=== PATIENT | male | born 1960 | race Caucasian/White ===

== ENCOUNTER 2020-12-11 09:49 | Emergency (ER) | payer OTHER ==
[~2020-12-11] VITALS: Ht 175.3 cm; Wt 99.0 kg
[2020-12-11 11:23] LABS: BASOPHILS % (AUTO) 1 % (0-1); EOSINOPHILS % (AUTO) 2 % (1-7); LYMPHOCYTES % (AUTO) 7 % (22-44); MEAN CORPUSCULAR HGB CONC 34.9 g/dL (33.2-36.2); MEAN PLATELET VOLUME 7.6 fL (7.4-10.4); MONOCYTES % (AUTO) 4 % (2-9); NEUTROPHILS % (AUTO) 87 % (42-75); PLATELET COUNT 264 x10^3/uL (130-400); RED BLOOD COUNT 5.27 x10^6/uL (4.38-5.82); RED CELL DISTRIBUTION WIDTH 13.5 % (9.4-14.8)
[2020-12-11 11:33] LABS: ALBUMIN 4.1 g/dL (3.4-5.0); ANION GAP 6 mmol/L (5-15); CHLORIDE 106 mmol/L (98-107)
[2020-12-11 11:41] LABS: HCT (SEDRATE) 48.4 % (39.2-51.8)
--- NOTE | 2020-12-11 12:19 | NUR ---
sent mri safety screening to mri, 20g IV started in left ac
--- NOTE | 2020-12-11 13:35 | NUR ---
REPORT FROM MAIRA LANGE FOR TRANSFER OF PATIENT CARE.
--- NOTE | 2020-12-11 14:05 | NUR ---
PATIENT RESTING IN GURNEY, WATCHING TV, NADN, CONNECTED TO MONITOR, VSS, CALL LIGHT WITHIN REACH, NO FURTHER NEEDS AT THIS TIME. WAITING FOR MRI.
--- NOTE | 2020-12-11 14:17 | NUR ---
ERMD AT BEDSIDE TO DISCUSS POC.
[2020-12-11] MEDS ORDERED: LORazepam 1MG TABLET ONE (14:25)
[2020-12-11] MEDS ORDERED: LIDOCAINE 1%, 10ML INFIL ONE (14:30)
[2020-12-11] MEDS ORDERED: LORazepam 1MG TABLET PO ONE (14:30)
[2020-12-11] MEDS ORDERED: LIDOCAINE-MPF 2% ,5ML ONE ×2 (14:37→16:44)
--- NOTE | 2020-12-11 15:12 | NUR ---
ERPA AT BEDSIDE FOR LUMBAR PUNCTURE.
[2020-12-11 15:54] LABS: GLUCOSE, CSF 89 mg/dL (40-80); TOTAL PROTEIN,CSF 54 mg/dL (15-45)
[2020-12-11] MEDS ORDERED: SODIUM CHLORIDE 0.9% 1,000ML IVBOLUS ONE (16:30)
--- NOTE | 2020-12-11 16:52 | NUR ---
LUMBAR PUNCTURE SET UP FOR SECOND ATTEMPT. ER PROVIDER NOTIFIED.
--- NOTE | 2020-12-11 17:24 | NUR ---
ERPA AT BEDSIDE FOR LUMBAR PUNCTURE.
--- NOTE | 2020-12-11 18:01 | NUR ---
SECOND LUMBAR PUNCTURE COMPLETED, PATIENT LAYING FLAT IN GURNEY, DENIES PAIN, CONNECTED TO MONITOR, VSS, CALL LIGHT WITHIN REACH, NO FURTHER NEEDS AT THIS TIME.
[2020-12-11] MEDS ORDERED: KETOROLAC 30 MG/1 ML ONE (18:19)
[2020-12-11 18:24] VITALS: BP 164/99
[2020-12-11] MEDS ORDERED: KETOROLAC 30 MG/1 ML IVPush ONE (18:30)
--- NOTE | 2020-12-11 18:43 | NUR ---
SEBASTIAN SPOKE WITH DR. PATRICK, OPHTALMOLOGIST, BLOOD WORK ORDERED AND LAB NOTIFIED TO COME AND DRAW PATIENT NOW BEFORE DISCHARGE.
--- NOTE | 2020-12-11 18:50 | NUR ---
REPORT FROM SUZIE RAO
== END 2020-12-11 19:04 | disposition home or self-care (01) ==
LOC: ED 10:19
DX: H54.61 Unqualified visual loss, right eye, normal vision left eye (principal); E11.9 Type 2 diabetes mellitus without complications
CPT/HCPCS: 36415; 62328; 80048; 82040; 82164; 82945; 84157; 85025; 85549; 85651; 86480; 86592; 87070; 87205; 87252; 87806; 88108; 89051; 96361; 96374; 99285; J1885; J3490; J7030; G0475